=== PATIENT | male | born 1975 | race Caucasian/White ===

== ENCOUNTER 2018-11-21 23:16 | Emergency (ER) | payer BC ==
[2018-11-21 23:55] VITALS: BP 143/76; PULSE 70; RESP 18; TEMP 98.5
[2018-11-21] MEDS ORDERED: PROPARACAINE 0.5% OPHTH DROPS 15 ML BTL RIGHT EYE STA (23:58)
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
[2018-11-22] MEDS ORDERED: TOBRAMYCIN 0.3% OPHTH OINT 3.5 GM TUBE RIGHT EYE STA (01:38)
== END 2018-11-22 01:58 | disposition home or self-care (01) ==
LOC: EC 23:16
DX: T15.81XA Foreign body in other and multiple parts of external eye, right eye, initial encounter (principal)
CPT/HCPCS: 99283